=== PATIENT | male | born 1940 | race Caucasian/White ===

== ENCOUNTER 2020-08-31 11:03 | Outpatient (CLI) | payer MEDICARE, SELFPAY ==
--- NOTE | ~2020-08-31 | XR_ITS ---
EXAMINATION: XR heel RT min 2V DATE: 08/31/2020 11:31 INDICATION: Right heel pain. TECHNIQUE: 2 views of right calcaneus were obtained. COMPARISON: None. FINDINGS: Bone alignment is normal. No fracture. There are enthesophytes at the posterior and plantar aspects of calcaneal tuberosity. There is soft tissue swelling posterior to calcaneus. IMPRESSION: 1. Shaq deformity. Reviewed, dictated and finalized at location B. RIPTIVE CATALOG LIBRARIAN IMPRESSION: 1. Shaq deformity.
[2020-08-31 12:22] LABS: Uric Acid 4.2 mg/dL (3.5-7.2)
== END 2020-08-31 11:04 | disposition home or self-care (01) ==
LOC: CHSLAB 11:08
PROVIDERS: PCP Internal Medicine
DX: M10.9 Gout, unspecified (principal); M79.671 Pain in right foot
CPT/HCPCS: 36415; 73650; 84550

== ENCOUNTER 2020-12-02 08:25 | Outpatient (CLI) | payer MEDICARE, SELFPAY ==
--- NOTE | 2020-12-21 14:11 | P.PCNHOL_ITS ---
Holter/Event Monitor Holter/Event Monitor Date of procedure: 12/02/20 Procedure Type: Event monitor Indications: TIA Conclusion: 1. 15 days event monitor between 12/02/20-12/21/20. There are 20 av ailable transmissions for analysis. 2. Underlying rhythm is sinus rhythm. HR range 51-141 bpm; average HR 77 bpm. 3. There are occasional premature supraventricular complexes with total burden <1%. No supraventricular tachycardia. 4. There are occasional premature ventricular complexes with total burden <1%. No ventricular tachycardia. 5. No significant pauses greater than 2 seconds. 6. Patient reports 3 episodes of symptoms of skipped beats and symptoms other than listed which demonstrate sinus rhythm, HR range 111-123 bpm with 2 episodes of PVC's.
== END 2020-12-02 08:26 | disposition home or self-care (01) ==
PROVIDERS: PCP Internal Medicine; Visit Provider Internal Medicine
DX: G45.9 Transient cerebral ischemic attack, unspecified (principal)
CPT/HCPCS: 99199

== ENCOUNTER 2021-05-27 07:33 | Outpatient (CLI) | payer MEDICARE, SELFPAY ==
[2021-05-27 09:44] LABS: SARS-CoV-2 RNA PCR Negative (Negative)
== END 2021-05-27 07:34 | disposition home or self-care (01) ==
LOC: CHSLAB 07:35
PROVIDERS: PCP Internal Medicine; Visit Provider Internal Medicine
DX: Z20.822 Contact with and (suspected) exposure to COVID-19 (principal)
CPT/HCPCS: C9803; U0003; U0005

== ENCOUNTER 2021-09-20 06:15 | Outpatient (CLI) | payer MEDICARE, SELFPAY ==
[2021-09-20 08:08] LABS: SARS-CoV-2 RNA PCR Negative (Negative)
== END 2021-09-20 06:16 | disposition home or self-care (01) ==
LOC: CHSLAB 06:19
DX: Z20.822 Contact with and (suspected) exposure to COVID-19 (principal)
CPT/HCPCS: C9803; U0003; U0005

== ENCOUNTER 2022-02-12 07:32 | Outpatient (CLI) | payer MEDICARE, SELFPAY ==
[2022-02-12 08:28] LABS: SARS-CoV-2 RNA PCR Negative (Negative)
== END 2022-02-12 07:33 | disposition home or self-care (01) ==
LOC: CHSLAB 07:38
DX: Z20.822 Contact with and (suspected) exposure to COVID-19 (principal)
CPT/HCPCS: C9803; U0003; U0005

== ENCOUNTER 2022-03-11 08:49 | Outpatient (CLI) | payer MEDICARE, SELFPAY ==
[2022-03-11 09:02] LABS: Add Urine Microscopic? NO; Appearance Urine Clear (Clear); Basophils Absolute Auto 0.04 K/mm3 (0.00-0.10); Basophils Percent Auto 0.7 % (0.0-1.0); Bilirubin Urine Negative (Negative); Blood Urine Negative (Negative); Color Urine Light Yellow (Yellow); Eosinophils Absolute Auto 0.25 K/mm3 (0.02-0.50); Eosinophils Percent Auto 4.1 % (1.0-6.0); Glucose Urine UA Negative (Negative); Hematocrit 39.7 % (37.0-46.0); Hemoglobin 13.4 g/dL (12.4-15.3); Immature Granulocyte Absolute 0.04 K/mm3 (0.00-0.00); Immature Granulocyte Percent A 0.7 % (0.0-0.0); Ketones Urine Negative (Negative); Leukocyte Esterase Ur Negative (Negative); Lymphocytes Absolute Auto 2.93 K/mm3 (1.10-4.50); Lymphocytes Percent Auto 48.6 % (18.0-42.0); Mean Corpuscular HGB Conc 33.8 g/dL (32.0-36.0); Mean Corpuscular Volume 97.8 fL (78.0-102.0); Mean Platelet Volume 9.4 fl (8.7-11.0); Monocytes Absolute Auto 0.56 K/mm3 (0.10-0.90); Monocytes Percent Auto 9.3 % (2.0-11.0); Neutrophils Absolute Auto 2.2 K/mm3 (1.7-7.2); Neutrophils Percent Auto 36.6 % (50.0-70.0); Nitrate Urine Negative (Negative); Platelet Count Result 187 K/mm3 (150-420); Protein Urine Negative (Negative); Red Blood Count 4.06 M/mm3 (4.70-6.10); Red Cell Distribution Width 13.5 % (11.6-14.4); Specific Grav Ur 1.015 (1.010-1.020); Urobilinogen Urine 0.2 mg/dL (0.2-1.0)
[2022-03-11 09:49] LABS: Alanine Aminotransferase 38 U/L (16-63); Albumin Level 3.9 g/dL (3.4-5.0); Alkaline Phosphatase 46 U/L (46-116); Anion Gap 7 mmol/L (8-16); Aspartate Amino Transferase 23 U/L (15-37); Bilirubin,Total 0.5 mg/dL (0.00-1.00); Blood Urea Nitrogen 18 mg/dL (7-18); Calcium 8.9 mg/dL (8.5-10.1); Carbon Dioxide 27 mmol/L (21-32); Chloride 105 mmol/L (98-108); Cholesterol 159 mg/dL (0-200); Creatine Kinase 177 U/L (39-308); Estimated Glomerular Filt Rate > 60; Glucose 115 mg/dL (70-99); HDL Direct 64 mg/dL (40-60); LDL Cholesterol Calculated 81 mg/dL (<130); Osmolality Calculated 290 mOsm/kg (285-295); Potassium 4.4 mmol/L (3.5-5.1); Prostate Specific Antigen 1.2 ng/mL (< OR = 4.0); Sodium 139 mmol/L (136-145); Total Protein 7.6 g/dL (6.4-8.2); Triglycerides 68 mg/dL (0-150)
[2022-03-15 14:42] LABS: Hemoglobin A1C 6.3 % (<5.7); Uric Acid 5.6 mg/dL (3.5-7.2)
== END 2022-03-11 08:50 | disposition home or self-care (01) ==
LOC: CHSLAB 08:51
PROVIDERS: PCP Internal Medicine; Visit Provider Internal Medicine
DX: E78.5 Hyperlipidemia, unspecified (principal); E79.0 Hyperuricemia without signs of inflammatory arthritis and tophaceous disease; Z12.5 Encounter for screening for malignant neoplasm of prostate; I10 Essential (primary) hypertension; R73.01 Impaired fasting glucose
CPT/HCPCS: 36415; 80053; 80061; 81003; 82550; 83036; 84153; 84550; 85025; G0103

== ENCOUNTER 2023-03-13 07:59 | Outpatient (CLI) | payer MEDICARE, SELFPAY ==
[2023-03-13 08:12] LABS: Basophils Absolute Auto 0.04 K/mm3 (0.00-0.10); Basophils Percent Auto 0.7 % (0.0-1.0); Eosinophils Absolute Auto 0.28 K/mm3 (0.02-0.50); Hematocrit 40.5 % (37.0-46.0); Hemoglobin 13.6 g/dL (12.4-15.3); Immature Granulocyte Absolute 0.01 K/mm3 (0.00-0.00); Immature Granulocyte Percent A 0.2 % (0.0-0.0); Lymphocytes Absolute Auto 2.67 K/mm3 (1.10-4.50); Mean Corpuscular HGB Conc 33.6 g/dL (32.0-36.0); Mean Corpuscular Hemoglobin 33.1 pg (27.0-31.0); Mean Corpuscular Volume 98.5 fL (78.0-102.0); Mean Platelet Volume 9.4 fl (8.7-11.0); Monocytes Absolute Auto 0.54 K/mm3 (0.10-0.90); Monocytes Percent Auto 9.7 % (2.0-11.0); Neutrophils Percent Auto 36.4 % (50.0-70.0); Platelet Count Result 188 K/mm3 (150-420); Red Blood Count 4.11 M/mm3 (4.70-6.10); Red Cell Distribution Width 13.3 % (11.6-14.4); White Blood Count 5.6 K/mm3 (4.8-10.8)
[2023-03-13 08:20] LABS: Appearance Urine Clear (Clear); Bilirubin Urine Negative (Negative); Blood Urine Negative (Negative); Color Urine Yellow (Yellow); Glucose Urine UA Negative (Negative); Ketones Urine Negative (Negative); Leukocyte Esterase Ur Negative LEU/UL (Negative); Nitrate Urine Negative (Negative); Protein Urine Negative (Negative); Urobilinogen Urine 0.2 mg/dL (0.2-1.0)
[2023-03-13 08:21] LABS: Add Urine Microscopic? NO
[2023-03-13 08:25] LABS: Creatinine Urine 89.85 mg/dL (40-278); MALB Creatinine Ratio 14.4 mg/g (0-30); Microalbumin Urine Random < 13.0 mg/L
[2023-03-13 08:45] LABS: Hemoglobin A1C 5.8 % (<5.7)
[2023-03-13 09:00] LABS: Alanine Aminotransferase 33 U/L (16-63); Albumin Level 4.1 g/dL (3.4-5.0); Alkaline Phosphatase 57 U/L (46-116); Anion Gap 9 mmol/L (8-16); Aspartate Amino Transferase 24 U/L (15-37); Bilirubin,Total 0.4 mg/dL (0.00-1.00); Blood Urea Nitrogen 18 mg/dL (7-18); Calcium 9.2 mg/dL (8.5-10.1); Carbon Dioxide 28 mmol/L (21-32); Chloride 105 mmol/L (98-108); Cholesterol 172 mg/dL (0-200); Creatine Kinase 183 U/L (39-308); Estimated Glomerular Filt Rate > 60; Glucose 124 mg/dL (70-99); HDL Direct 63 mg/dL (40-60); LDL Cholesterol Calculated 96 mg/dL (<130); Osmolality Calculated 296 mOsm/kg (285-295); Potassium 4.3 mmol/L (3.5-5.1); Prostate Specific Antigen 1.2 ng/mL (< OR = 4.0); Sodium 142 mmol/L (136-145); Total Protein 7.6 g/dL (6.4-8.2); Triglycerides 63 mg/dL (0-150); Uric Acid 4.8 mg/dL (3.5-7.2)
== END 2023-03-13 08:00 | disposition home or self-care (01) ==
LOC: CHSLAB 08:01
PROVIDERS: PCP Internal Medicine; Visit Provider Internal Medicine
DX: R73.01 Impaired fasting glucose (principal); E78.2 Mixed hyperlipidemia; I10 Essential (primary) hypertension; N39.0 Urinary tract infection, site not specified; Z12.5 Encounter for screening for malignant neoplasm of prostate
CPT/HCPCS: 36415; 80053; 80061; 81003; 82043; 82550; 83036; 84153; 84550; 85025; G0103

== ENCOUNTER 2023-08-04 10:45 | Outpatient (CLI) | payer MEDICARE, SELFPAY ==
--- NOTE | ~2023-08-04 | XR_ITS ---
Lumbosacral Spine: AP and lateral views Clinical History: Pain Findings: There is mild dextroscoliosis. There is 3 mm retrolisthesis of L2 over L3. There is 4 mm re trolisthesis of L3 over L4. There is posterior and interbody fusion from L4 to L5. There is advanced degenerative disc narrowing L1-L2, L2-L3, L3-L4. There is moderate facet arthropathy the upper lumbar spine. No acute fracture seen. The sacroiliac joints are normally outlined. Impression: Posterior and interbody fusion from L4 to L5. 3 mm retrolisthesis of L2 over L3. 4 mm retrolisthesis of L3 over L4. Moderate to advanced degenerative spondylosis. Reviewed, dictated and finalized at location . OMER FIELD REPRESENTATIVE Impression: Posterior and interbody fusion from L4 to L5. 3 mm retrolisthesis of L2 over L3. 4 mm retrolisthesis of L3 over L4. Moderate to advanced degenerative spondylosis.
== END 2023-08-04 10:46 | disposition home or self-care (01) ==
LOC: CHSLAB 10:47
PROVIDERS: PCP Internal Medicine; Visit Provider Internal Medicine
DX: M54.50 Low back pain, unspecified (principal); Z98.1 Arthrodesis status; M43.16 Spondylolisthesis, lumbar region
CPT/HCPCS: 72100

== ENCOUNTER 2024-04-03 08:33 | Outpatient (CLI) | payer MEDICARE, SELFPAY ==
[2024-04-03 08:58] LABS: Hematocrit 42.6 % (37.0-46.0); Hemoglobin 14.4 g/dL (12.4-15.3); Mean Corpuscular HGB Conc 33.8 g/dL (32-36); Mean Corpuscular Volume 94.7 fL (78.0-102.0); Mean Platelet Volume 9.4 fl (8.7-11.0); Platelet Count Result 199 K/mm3 (150-420); Red Cell Distribution Width 12.7 % (11.6-14.4); White Blood Count 5.5 K/mm3 (4.8-10.8)
[2024-04-03 09:05] LABS: Appearance Urine Clear (Clear); Bilirubin Urine Negative (Negative); Blood Urine Negative (Negative); Color Urine Light Yellow (Yellow); Glucose Urine UA Negative (Negative); Ketones Urine Negative (Negative); Leukocyte Esterase Ur Negative LEU/UL (Negative); Nitrate Urine Negative (Negative); Protein Urine Negative (Negative); Urobilinogen Urine 0.2 mg/dL (0.2-1.0)
[2024-04-03 09:07] LABS: Add Urine Microscopic? NO
[2024-04-03 09:08] LABS: Hemoglobin A1C 5.9 % (<5.7)
[2024-04-03 10:04] LABS: Alanine Aminotransferase 39 U/L (16-63); Albumin Level 4.5 g/dL (3.4-5.0); Alkaline Phosphatase 51 U/L (46-116); Anion Gap 10 mmol/L (4-12); Aspartate Amino Transferase 24 U/L (15-37); Bilirubin,Total 0.5 mg/dL (0.00-1.00); Blood Urea Nitrogen 20 mg/dL (7-18); Calcium 9.5 mg/dL (8.5-10.1); Carbon Dioxide 27 mmol/L (21-32); Chloride 102 mmol/L (98-108); Cholesterol 167 mg/dL (0-200); Creatine Kinase 229 U/L (39-308); Estimated Glomerular Filt Rate > 60; Glucose 113 mg/dL (70-99); HDL Direct 67 mg/dL (40-60); LDL Cholesterol Calculated 88 mg/dL (<130); Osmolality Calculated 291 mOsm/kg (285-295); Potassium 4.4 mmol/L (3.5-5.1); Prostate Specific Antigen 1.3 ng/mL (< OR = 4.0); Sodium 139 mmol/L (136-145); Total Protein 8.1 g/dL (6.4-8.2); Triglycerides 62 mg/dL (0-150); Uric Acid 8.2 mg/dL (3.5-7.2)
== END 2024-04-03 08:34 | disposition home or self-care (01) ==
PROVIDERS: PCP Internal Medicine; Visit Provider Internal Medicine
DX: E79.0 Hyperuricemia without signs of inflammatory arthritis and tophaceous disease (principal); E78.2 Mixed hyperlipidemia; I10 Essential (primary) hypertension; R73.01 Impaired fasting glucose; N39.0 Urinary tract infection, site not specified; Z12.5 Encounter for screening for malignant neoplasm of prostate
CPT/HCPCS: 36415; 80053; 80061; 81003; 82550; 83036; 84153; 84550; 85027; G0103

== ENCOUNTER 2024-04-09 08:29 | Outpatient (RCR) | payer MEDICARE, SELFPAY ==
--- NOTE | 2024-04-09 09:57 | OPREHPOC ---
Outpatient Therapy Plan of Care This is a Multidisciplinary Plan of Care that may contain components documented by all disciplines (PT, OT, and ST.) PT Problem 1 PT Problem #1 Knowledge Deficit PT Goal 1 Goal 1. independent and compliant with HEP Target Visit 4 PT Problem 2 PT Problem #2 Impaired Strength PT Goal 1 Goal 1. improve core strength to 4-/5 or better 2. improve bilateral hip strength to 5/5 3. improve bilateral knee strength to 5/5 4. improve bilateral ankle strength to 5/5 Target Visit 8 PT Problem 3 PT Problem #3 Impaired Balance PT Goal 1 Goal 1. TUG to be completed in 12 seconds or less 2. 5x sit to stand to be completed in less than 15 seconds Target Visit 8 PT Problem 4 PT Problem #4 Impaired Functional Mobil PT Goal 1 Goal 1. patient to return to golfing to improve his quality of life 2. oswestry to display less than 20% functional deficits 3. patient to safely squat and lift 20lbs from floor to waist 4. patient to bend forward and lift 5lbs from floor safely Target Visit 8
--- NOTE | 2024-04-09 09:58 | PTOPEVAL1 ---
Assessment and note entered by JT File, PT Evaluation Information Assessment Status Evaluation Diagnosis s/p lumbar fusoin, unsteady gait, weakness ICD-10 Condition Codes (PT) Difficulty Walking R26.2,Weakness R53.1 Onset 04/05/24 Subjective Information patient reports he had had his last back surgery about 5 years ago where they fused one level in his lumbar spine. he reports he is also having minor balance issues and weakness in the legs. he reports he feels his balance and weakness has been going on for a few years. he reports his post op recovery was normal. he reports he has had no falls. he reports he does have pain off and on in the lower back. he reports he does not have any numbness or tingling in the feet. Reported Pain Level Pain Score 1: Self Report Assessment PT Clinical Summary mr. xiong is an 83 yo man who presents to skilled PT services for evaluation and treatment of generalized weakness, unsteady gait, and weakness s/p lumbar fusion. he presents today with deficits in balance per the 5x sit to stand and TUG test, weakness in the LE's, and core weakness. continued skilled PT is indicated to improve his objective/ functional deficits and progress towards a return to his prior level functional activity performance and quality of life. Plan of Care Interventions Electrical Stimulation,Gait Training,Hot Pack/Cold Pack,Manual Therapy,Neuro Re-education,Patient/ Caregiver Educati,Therapeutic Activities, Therapeutic Exercise PT Services Indicated Yes Treatment Frequency and 2x weekly for 8 visits Duration These treatments will address the objective and functional deficits as defined above. The patient will be advanced safely and appropriately in order for the patient to progress towards his/her prior level of function. Additional exercises will be introduced and as well as a comprehensive home exercise program upon discharge, if needed, ?to ensure carryover of functional gains achieved in the clinic. This treatment plan has been reviewed and agreement upon by the patient.
--- NOTE | 2024-04-25 11:25 | OPREHPOC ---
Outpatient Therapy Plan of Care This is a Multidisciplinary Plan of Care that may contain components documented by all disciplines (PT, OT, and ST.) PT Problem 1 PT Problem #1 Knowledge Deficit PT Goal 1 Goal 1. independent and compliant with HEP Target Visit 4 Progress Met PT Problem 2 PT Problem #2 Impaired Strength PT Goal 1 Goal 1. improve core strength to 4-/5 or better. not met 2. improve bilateral hip strength to 5/5. met 3. improve bilateral knee strength to 5/5. met 4. improve bilateral ankle strength to 5/5. met Target Visit 8 Progress Partially Met PT Problem 3 PT Problem #3 Impaired Balance PT Goal 1 Goal 1. TUG to be completed in 12 seconds or less. met 2. 5x sit to stand to be completed in less than 15 seconds. met Target Visit 8 Progress Met PT Problem 4 PT Problem #4 Impaired Functional Mobil PT Goal 1 Goal 1. patient to return to golfing to improve his quality of life. not met 2. oswestry to display less than 20% functional deficits. not met 3. patient to safely squat and lift 20lbs from floor to waist. met 4. patient to bend forward and lift 5lbs from floor safely. met Target Visit 8 Progress Partially Met
--- NOTE | 2024-04-25 11:25 | PTOPDC ---
Assessment and note entered by JT File, PT Evaluation Information Assessment Status Discharge Diagnosis s/p lumbar fusoin, unsteady gait, weakness ICD-10 Condition Codes (PT) Difficulty Walking R26.2,Weakness R53.1 Onset 04/05/24 Subjective Information patient reports he feels Good today. he reports he did have to take a pain pill this morning, but reports he has no pain now. he reports he is compliant with his HEP. he reports he is ready to be done with therapy today. Reported Pain Level Pain Score 0: Self Report Assessment PT Clinical Summary dr. xiong presents to skilled PT for his 4th skilled PT visit. he reports he would like to be done with therapy today. he has been compliant with HEP exercises, and has met several goals for skilled PT. he has also made progress towards all unmet goals. he will be DC'd from skilled PT today , but was educated to continue with his HEP independent at home. Plan of Care PT Services Indicated Yes
== END 2024-04-25 20:00 | disposition home or self-care (01) ==
LOC: CHSPT 08:29
PROVIDERS: PCP Internal Medicine; Visit Provider Internal Medicine
DX: R26.81 Unsteadiness on feet (principal); R53.1 Weakness; Z98.1 Arthrodesis status
CPT/HCPCS: 97110; 97112; 97161

== ENCOUNTER 2025-04-23 07:49 | Outpatient (CLI) | payer MEDICARE, SELFPAY ==
--- OUTSIDE RECORDS SUMMARY | 2025-04-23 07:58 | XMS_ITS | Clinical Summary ---
Author Organization [facility] Address [address] [place] [address] Care Team Providers Care Cafeteria Clerk Name Role Phone Pepper Colbert MD Primary Care Provider [phone] Allergies No known active allergies Medications lisinopriL (PRINIVIL,ZESTRI L) 20 mg tabletIndication s:hypertension Take 20 mg by mouth every morning Active amLODIPine (NORVASC) 10 mg tabletIndication s:hypertension Take 10 mg by mouth every morning Active atorvastatin (LIPITOR) 10 mg tabletIndication s:hyperlipidemia Take 10 mg by mouth every morning Active allopurinoL (ZYLOPRIM) 300 mg tabletIndication s:prevention of acute gout attack Take 300 mg by mouth every morning Active aspirin 81 mg enteric coated tabletIndication s:cerebral ischemia Take 1 tablet (81 mg total) by mouth daily 30 tablet 11 1 Active Additional Information Patient taking differently:81 mg oralEvery morning, Indications: cerebral ischemia, Reported on 02/16/2022 NON FORMULARY, FOR CLINIC ADMINISTERED MEDICATIONS ONLY, (not in database)Indicat ions:CELERY TAB FOR GOUT Take 1 each by mouth every morning Celery root for gout Active multivitamin capsuleIndicatio ns:Vitamin Deficiency Prevention Take 1 capsule by mouth every morning Active NON FORMULARY, FOR CLINIC ADMINISTERED MEDICATIONS ONLY, (not in database)Indicat ions:IMMUNE BOOSTER Take 1 each by mouth every morning IMMUNE BOOSTER Active polymyxin B-trimethoprim (POLYTRIM) ophthalmic solution 2 Active prednisoLONE acetate (PRED FORTE) 1 % ophthalmic suspension 2 Active Active Problems Problem Noted Date Diagnosed Date Carpal tunnel syndrome, right 11/25/2020 Overview (11/25/2020): Added automatically from request for surgery [id number] Trigger finger, right ring finger 11/25/2020 Overview (11/25/2020): Added automatically from request for surgery [id number] Stroke-like symptoms 10/22/2020 Essential hypertension 10/22/2020 Hyperlipidemia 10/22/2020 Gout 10/22/2020 Carpal tunnel syndrome 03/03/2016 Elbow pain 04/09/2014 Immunizations Immunization Administration Dates Next Due Influenza, Unspecified 07/26/2020 Surgical History Surgery Date Site/Laterality Comments CARPAL TUNNEL RELEASE 09/25/2013 - 09/24/2014 LUMBAR FUSION 2018 COLONOSCOPY Medical History Medical History Date Comments Hyperlipidemia TIA (transient ischemic attack) 10/22/2020 neuro eval and no further concerns Hypertension Family History Medical History Relation Name Comments Hypertension Brother 1 Family history of hypertension - (Added by TW Conv) Stroke Brother 2 Family history of cerebrovascular accident - (Added by TW Conv) Gout Brother 3 Family history of gout - (Added by TW Conv) Hypertension Father Family history of hypertension - (Added by TW Conv) Kidney disease Father Family histor y of kidney disease - (Added by TW Conv) Stroke Father Family history of cerebrovascular accident - (Added by TW Conv) Arthritis Mother Family history of arthritis - (Added by TW Conv) Gout Mother Family history of gout - (Added by TW Conv) Hypertension Mother Family history of hypertension - (Added by TW Conv) Stroke Mother Family history of cerebrovascular accident - (Added by TW Conv) Hypertension Sister Family history of hypertension - (Added by TW Conv) Anesthesia problems Neg Hx Relation Name Status Comments Brother 1 Brother 2 Brother 3 Father Mother Sister Social History Tobacco Use Types Packs/Day Years Used Date Smoking Tobacco: Never Smokeless Tobacco: Never AUDIT-C Answer Date Recorded Q1: How often do you have a drink containing alc ohol? 2-4 times a month 02/09/2022 Q2: How many drinks containi ng alcohol do you have on a typical day when you are drinking? 1 or 2 02/09/2022 Q3: How often do you have si x or more drinks on one occasion? Never 02/09/2022 Sex and Gender Information Value Date Recorded Sex Assigned at Not on file Legal Sex Male 11:02 AM RN POST PARTUM Gender Identity Not on file Sexual Orientation Not on file Obstetrics History Last Filed Vital Signs Vital Sign Reading Time Taken Comments Blood Pressure 132/73 02/16/2022 12:30 PM CDT Pulse 77 02/16/2022 12:30 PM CDT Temperature 36.5 C (97.7 F) 02/16/2022 12:15 PM CDT Respiratory Rate 18 02/16/2022 12:30 PM CDT Oxygen Saturation 99% 02/16/2022 12:30 PM CDT Inhaled Oxygen Concentration - - Weight 68 kg (150 lb) 02/09/2022 1:40 PM CDT Height 170.2 cm (5' 7) 02/09/2022 1:40 PM CDT Body Mass Index 23.49 02/09/2022 1:40 PM CDT Plan of Treatment Health Maintenance Due Date Last Done Comments Depression Screening 1940 DTaP/Tdap/Td Vaccine (1 - Tdap) 1950 Hepatitis B Screening 1957 Pneumococcal vaccine 65+ (1 of 1 - PCV) 1989 Zoster Vaccine (1 of 2) 1989 Well Visit 65+ 2004 Fall Risk Assessment 02/16/2023 02/16/2022 Covid-19 Vaccine (4 - 2023-2 5 season) 2024 07/01/2021, 11/18/2020, 10/28/2020 Influenza Vaccine (#1) 2025 , 08/12/2020, 07/26/2020, Additional history exists Medical Devices Implanted Type Area Pelt Grader Device Identifier Shelf Expiration Date Model / Serial / Lot [employer] Lens Iol Tecnis Smplcty 1-Pc Clr [place] 18.0 Diopter [id number] - [id number] - [id number] Implanted:Qty: 1 on 02/16/2022 by Brandon Rivas MD at [facility] Lens Right: Eye [employer] [id number] 02/22/2024 [id number] / [id number] / 0 Insurance MEDICARE [facility] Advance Directives For more information, please contact: [phone] * Full Code (Latest Code Status on File) Date Activated Date Inactivated Comments 02/16/2022 9:53 AM 02/16/2022 4:41 PM * Full Code Date Activated Date Inactivated Comments 10/22/2020 4:58 PM 10/23/2020 5:10 PM Care Teams Cafeteria Clerk Relationship Specialty Start Date End Date Pepper Colbert MD [address], [place] [id number] PCP - General Internal Medicine 02/11/22
--- OUTSIDE RECORDS SUMMARY | 2025-04-23 07:58 | XMS_ITS | Referral Summary ---
Author Organization [facility] Address [address] [place] [address] Care Team Providers Care Plant Breeder Name Role Phone Pepper Colbert MD Primary Care Provider [phone] Allergies No known active allergies Medications lisinopriL [...] (11/25/2020): Added automatically from request for surgery [id number] Trigger finger, right ring finger 11/25/2020 Overview (11/25/2020): Added automatically from request for surgery [id number] Stroke-like symptoms 10/22/2020 Essential hypertension 10/22/2020 Hyperlipidemia 10/22/2020 Gout 10/22/2020 Carpal tunnel syndrome 03/03/2016 Elbow pain 04/09/2014 Immunizations Immunization Administration Dates Next Due Influenza, Unspecified 07/26/2020 Social History Tobacco Use Types Packs/Day Years [...] on file Legal Sex 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 Gender Identity Not on file Sexual Orientation Not on file Last Filed Vital Signs Vital Sign Reading [...] 02/09/2022 1:40 PM CDT Plan of Treatment Not on file Medical Devices Implanted Type Area Vulcanizer Device Identifier Shelf Expiration Date Model / Serial / Lot [employer] Lens Iol Tecnis Smplcty 1-Pc Clr [place] 18.0 Diopter [id number] - [id number] - [id number] Implanted:Qty: 1 on 02/16/2022 by Brandon Rivas MD at [facility] Lens Right: Eye [employer] [id number] 02/22/2024 [id number] / [id number] / 0 Insurance MEDICARE [facility] MEDICARE [facility] Advance Directives For more information, please contact: [phone] * Full Code (Latest Code Status on File) Date Activated Date Inactivated Comments 02/16/2022 9:53 AM 02/16/2022 4:41 PM * Full Code Date Activated Date Inactivated Comments 10/22/2020 4:58 PM 10/23/2020 5:10 PM Care Teams Plant Breeder Relationship Specialty Start Date End Date Pepper Colbert MD [address] [place] [address] PCP - General Internal Medicine 02/11/22
[2025-04-23 08:04] LABS: Hematocrit 40.2 % (37.0-46.0); Hemoglobin 13.5 g/dL (12.4-15.3); Immature Granulocyte Percent A 0.2 % (0.0-0.0); Lymphocytes Absolute Auto 2.08 K/mm3 (1.10-4.50); Mean Corpuscular HGB Conc 33.6 g/dL (32-36); Mean Corpuscular Hemoglobin 32.2 pg (27.0-31.0); Mean Corpuscular Volume 95.9 fL (78.0-102.0); Nucleated Red Blood Cells Absolute Auto 0.00 K/mm3 (0.00-0.00); Nucleated Red Blood Cells Perc 0.0 % (0-0.0); Platelet Count Result 224 K/mm3 (150-420); Red Blood Count 4.19 M/mm3 (4.70-6.10); White Blood Count 5.2 K/mm3 (4.8-10.8)
[2025-04-23 08:05] LABS: Add Urine Microscopic? NO; Appearance Urine Clear (Clear); Glucose Urine UA Negative (Negative); Leukocyte Esterase Ur Negative LEU/UL (Negative); Nitrate Urine Negative (Negative); Specific Grav Ur 1.015 (1.010-1.020)
[2025-04-23 08:36] LABS: Hemoglobin A1C 6.0 % (<5.7)
[2025-04-23 08:57] LABS: Alanine Aminotransferase 27 U/L (6-50); Albumin Level 4.5 g/dL (3.5-5.1); Alkaline Phosphatase 58 U/L (38-126); Anion Gap 8 mmol/L (4-12); Aspartate Amino Transferase 35 U/L (17-59); Bilirubin,Total 0.6 mg/dL (0.2-1.3); Blood Urea Nitrogen 21 mg/dL (9-20); Calcium 9.1 mg/dL (8.4-10.2); Carbon Dioxide 26 mmol/L (22-30); Chloride 106 mmol/L (98-107); Cholesterol 139 mg/dL (0-200); Creatine Kinase 170 U/L (55-170); Estimated Glomerular Filt Rate > 60; Glucose 111 mg/dL (65-110); HDL Direct 54 mg/dL; Osmolality Calculated 294 mOsm/kg (285-295); Potassium 4.5 mmol/L (3.4-5.0); Sodium 140 mmol/L (137-145); Total Protein 7.4 g/dL (6.3-8.2); Triglycerides 70 mg/dL (<150); Uric Acid 8.3 mg/dL (3.5-8.5)
[2025-04-23 09:27] LABS: Prostate Specific Antigen 1.8 ng/mL (< OR = 4.0)
== END 2025-04-23 07:50 | disposition home or self-care (01) ==
LOC: CHSLAB 07:51
PROVIDERS: PCP Internal Medicine; Visit Provider Internal Medicine
DX: E78.2 Mixed hyperlipidemia (principal); E79.0 Hyperuricemia without signs of inflammatory arthritis and tophaceous disease; R73.01 Impaired fasting glucose; N39.0 Urinary tract infection, site not specified; Z12.5 Encounter for screening for malignant neoplasm of prostate
CPT/HCPCS: 36415; 80053; 80061; 81003; 82550; 83036; 84153; 84550; 85025; G0103